=== PATIENT | male | born 1960 | race Caucasian/White ===

== ENCOUNTER 2019-10-15 08:47 | Outpatient (CLI) | payer BC ==
[~2019-10-15] VITALS: Ht 182.9 cm; Wt 93.5 kg
[2019-10-15 08:57] VITALS: BP 140/77
[2019-10-15] MEDS ORDERED: LISI-552 PO (09:45)
[2019-10-15] MEDS ORDERED: AMLO5TAB9 PO (09:45)
[2019-10-15] MEDS ORDERED: ATEN25TA PO (09:45)
[2019-10-15] MEDS ORDERED: SIMV20TA26 PO (09:45)
== END 2019-10-15 09:20 | disposition home or self-care (01) ==
LOC: PREOP 08:47
PROVIDERS: ATTEND Surgery
DX: Z01.812 Encounter for preprocedural laboratory examination (principal); K43.2 Incisional hernia without obstruction or gangrene
CPT/HCPCS: 87081

== ENCOUNTER 2019-10-22 06:49 | Day surgery (SDC) | payer BC ==
[2019-10-22] VITALS (10 sets, daily range): BP systolic 102–125; BP diastolic 62–76
[~2019-10-22] VITALS: Ht 182.9 cm; Wt 93.5 kg
[~2019-10-22 06:49] MED LIST: AMLO5TAB9 PO; ATEN25TA PO; LISI-552 PO; SIMV20TA26 PO
[2019-10-22] MEDS ORDERED: BUP/EPI 0.5% 1:200,000 (SENSORCAINE) 30 ML VIAL ONE (07:13)
[2019-10-22] MEDS ORDERED: CLINDAMYCIN 600 MG/50 ML IVPB 50 ML IV ONE (07:15)
[2019-10-22] MEDS ORDERED: SEVOFLURANE (ULTANE) 15 ML INHAL SOLN ONE (07:16)
[2019-10-22] MEDS ORDERED: proPOfol 200 MG/20 ML (DIPRIVAN) VIAL IV ONE (07:16)
[2019-10-22] MEDS ORDERED: DEXAMETHASONE 10 MG/ML (DECADRON) 1 ML VIAL ONE (07:16)
[2019-10-22] MEDS ORDERED: GLYCOPYRROLATE 0.2 MG/ML (ROBINUL) 2 ML VIAL ONE (07:16)
[2019-10-22] MEDS ORDERED: ONDANSETRON 4 MG/2 ML (SDV) Z0FRAN ONE (07:16)
[2019-10-22] MEDS ORDERED: LIDOCAINE PF 2% 5 ML (XYLOCAINE) VIAL ONE (07:16)
[2019-10-22] MEDS ORDERED: NEOSTIGMINE 3 MG/3 ML VIAL ONE (07:16)
[2019-10-22] MEDS ORDERED: ROCURONIUM 10 MG/ML 5 ML SYRINGE IV ONE (07:16)
[2019-10-22] MEDS ORDERED: fentaNYL INJECTION 100 MCG/2 ML AMP ONE (07:17)
[2019-10-22] MEDS ORDERED: MIDAZOLAM 2 MG/2 ML (VERSED) VIAL ONE (07:17)
[2019-10-22] MEDS: LACTATED RINGERS 1,000 ML IV PRN ×2 (07:40→08:52)
--- NOTE | 2019-10-22 08:12 | Progress Note-Pre Operative ---
Pre-Operative Progress Note H&P Reviewed The H&P was reviewed, patient examined and no changes noted. Time Seen by Provider: 08:06 Date H&P Reviewed: Oct 22, 2019 Time H&P Reviewed: 08:07 Pre-Operative Diagnosis: incarcerated incisional hernia FRANK ROMERO DO Oct 22, 2019 08:12
[2019-10-22] MEDS ORDERED: morphine INJ 10 MG/ML 1ML (SYR OR VIAL) IVP ONE (08:45)
[2019-10-22] MEDS ORDERED: ONDANSETRON 4 MG/2 ML (SDV) Z0FRAN IVP PRN (08:45)
[2019-10-22] MEDS ORDERED: HYDROmorphone 2 MG/ML VIAL (DILAUDID) IV ONE (08:45)
--- NOTE | 2019-10-22 09:06 | Progress Note-Post Operative ---
Post-Operative Progess Note Surgeon (s)/Stain Wiper (s) Surgeon FRANK ROMERO DO Stain Wiper: Pradeep Pre-Operative Diagnosis incarcerated incisional hernia Post-Operative Diagnosis same Procedure & Operative Findings Date of Procedure 10/22/19 Procedure Performed/Findings Lap inc/ventral herniarraphy with mesh placement Anesthesia Type GET Estimated Blood Loss Estimated blood loss (mL): scant Specimens/Packing Specimens Removed none FRANK ROMERO DO Oct 22, 2019 09:06
[2019-10-22] MEDS ORDERED: ACHD5005 PO (09:08)
--- NOTE | 2019-10-22 09:09 | Discharge Inst-Surgical ---
Discharge Inst-Surgical Depart Medication/Instructions New, Converted or Re-Newed RX: RX Given to Pt/Family Patient Instructions Follow up Appt: Make appointment for 1 week. [phone] Instructions: No lifting greater than 20 pounds. No strenuous activity. May shower in 24 hours, no tub bath or soaking. Use incentive spirometer at home as directed. No Smoking Skin/Wound Care: May remove bandages in am. You need to leave the Dermabond on incision it will fall off on it's own. Symptoms to Report: Appetite Changes, Extremity Discoloration, Numbness/Tingling, Swelling Increased, Bleeding Excessive, Eyesight Changes, Pain Increased, Urine Color Change, Constipation(Persistent), Fever over 101 degree F, Pain/Pressure in chest, Urinating Difficulty, Cough Up/Vomit Blood, Heart Beat Irreg/Pounding, Pain/Pressure in jaw, Cramps in feet or legs, Lightheadedness, Pain/Pressure in shoulder, Diarrhea(Persistent), Memory Changes Suddenly, Questions/Concerns, Weight gain consecutive days, Dizziness/Fainting, Nausea/Vomiting, Shortness of Breath, Weight gain over 2 pounds If questions or concerns contact your physician Or seek help at emergency department. Activity Activity as Tolerated: Yes Activity Instructions: Avoid Stress to Incision Driving Instructions: No Driving/Refer to Dr. Flores Discharge Diet: No Restrictions Diet After 24 Hours: Clear Liquid if Nauseous If Any Problems/Questions/Issu: Contact Your Physician, Go to Emergency Room Skin/Wound Care Infection Signs and Symptoms: Increased Redness, Foul Odor of Wound, Increased Drainage, Skin Itchy or Has a Rash, Increased Swelling, Temperature Above 101 F Wound Care Comment: heating pad to shoulder or neck tonight for pain Bathing Instructions: Shower Stitches/Frederic/Dermabond Dis: Dermabond Ice Pack: Ice On and Off Site (as needed for pain at incisions) FRANK ROMERO DO Oct 22, 2019 09:09
--- NOTE | 2019-10-22 10:15 | NUR ---
TO AMB SURG FROM PAR PER CART. ALERT, RATES ABDOMINAL SURGICAL SITE PAIN 2-3 ON NUMERIC SCALE. SKIN AFFIX INTACT TO X4 LAP ABD SURGICAL SITES, ICE PACK ON. PO FLUIDS AND CRACKERS PROVIDED.
[2019-10-22] MEDS ORDERED: HYDROcodone/APAP 5 MG/325 MG (LORTAB) TAB PO ONE (10:30)
--- NOTE | 2019-10-22 10:46 | NUR ---
TAKING PO FLUIDS AND CRACKERS WITHOUT PROBLEM. LORTAB 5/325 MG, ONE TAB, GIVEN PO FOR SURGICAL SITE PAIN.
--- NOTE | 2019-10-22 11:30 | NUR ---
SURGICAL SITE PAIN RATED 2. NO CHANGE IN SITE ASSESSMENT. REQUESTING DISMISSAL.
--- NOTE | 2019-10-22 13:43 | OPERATIVE REPORT ---
DATE OF SERVICE: 10/22/2019 PREOPERATIVE DIAGNOSIS: Incarcerated incisional ventral hernia. POSTOPERATIVE DIAGNOSIS: Incarcerated incisional ventral hernia. PROCEDURE: Laparoscopic ventral herniorrhaphy with mesh placement. SURGEON: Corey Dumont DO SUPERVISOR MENDING: Saturnino Fernández DO ANESTHESIA: General endotracheal tube. SPECIMENS: None. We did take fat out of the hernia and fascial defects. BLOOD LOSS: Scant. FLUIDS: Per anesthesia. POSTOPERATIVE CONDITION: Stable. INDICATION FOR PROCEDURE: The patient is a 59-year-old male who has pain and bulge in the umbilical area diagnosed with incarcerated ventral incisional hernia from previous port site. FINDINGS: The patient had some fat incarcerated into the whole right at the previous site of port placement removed and then mesh placed. PROCEDURE NOTE: After informed consent was obtained, the patient was brought to the operating room, placed on the operating table in supine position. He was sterilely prepped and draped in normal fashion. Local lidocaine was used to infiltrate the skin in left upper quadrant, made an incision with #11 blade, carried down through the skin into subcutaneous tissue, then deepened down to subcutaneous tissue with Bovie electrocautery down to fascia. Fascia was incised with Bovie electrocautery, bluntly spread the muscle apart, went through the posterior fascia then into the abdomen, placed 11 mm trocar port under direct visualization and created pneumoperitoneum, then placed 2 more ports in normal fashion using local lidocaine, 11 blade for stab incision and VersaStep system, all done under direct visualization, one in the left lower quadrant, one in the right medial abdomen. Pneumoperitoneum created. Looked at the abdominal wall, could see some fat. Elected to take this down with LigaSure, clamping, coagulating and transecting removing this fat, so we could see the peritoneal wall and then found some fat stuck in the fascial defect. Able to grasp this fat and pulled this out and then removed from the abdomen, took a picture of the opening and then made a small stab incision with #11 blade and then placed a 4.5 inch round Bard mesh with the Echo positioning system placed in the abdomen and then grasped the catheter with the then pulled it up to the abdomen and then blew up the balloon to hold this mesh in place. Brought the pneumoperitoneum down to 8 and then tacked the mesh up at 3, 6, 9, and 12 o'clock position as well as in between with 0.5 to 1 cm spacing and then did a few tacks in the middle. Mesh laid up nicely, took a picture of this, looked around. The patient complained of some weakness in the left side. Did not see any weakness, did not see any obvious pathology and at this point then removed all ports under direct visualization, allowed pneumoperitoneum to escape. Closed the posterior fascia and peritoneum with a 3-0 Vicryl suture then closed the anterior fascia with 0 Vicryl [id number] suture. Area was then cleaned and dried. The ports were then copiously irrigated with normal saline. Had removed all of them and closed the left upper quadrant incision, closing with 4-0 undyed Monocryl 3 interrupted subcuticular stitches and closed the 2 small 5 mm incisions with a single interrupted 4-0 undyed Monocryl subcuticular stitch. Area was cleaned and dried. Dermabond placed. Sponge, instrument and needle count correct at the end of the case. Dr. Fernández assisted in this case helping to make incisions, close incisions, identify anatomy, hold anatomy out of the way. Job ID: [id number] DocumentID: [id number] Dictated Date: 10/22/2019 09:04:27 Water Purifier Date: 10/22/2019 13:41:30 Dictated By: COREY DUMONT DO
== END 2019-10-22 11:52 | disposition home or self-care (01) ==
LOC: SDC 06:49
PROVIDERS: ATTEND Surgery
DX: K43.0 Incisional hernia with obstruction, without gangrene (principal); I10 Essential (primary) hypertension; E78.5 Hyperlipidemia, unspecified; E78.00 Pure hypercholesterolemia, unspecified; Z88.0 Allergy status to penicillin; Z79.899 Other long term (current) drug therapy; Z83.3 Family history of diabetes mellitus